=== PATIENT | female | born 1995 | race Caucasian/White ===

== ENCOUNTER 2020-07-22 08:40 | Outpatient (REF) | payer OTHER, SELFPAY ==
[2020-07-22 10:03] LABS: MANUAL DIFF FLAG NO
[2020-07-22 10:08] LABS: Basophils Absolute Auto 0.1 X10*3/uL (0.0-0.2); Basophils Percent Auto 1.9 % (0-2); Eosinophils Absolute Auto 0.1 X10*3/uL (0.0-0.4); Eosinophils Percent Auto 1.9 % (0-4); Hematocrit 41.7 % (37-47); Hemoglobin 13.1 g/dl (12.0-16.0); Lymphocytes Absolute Auto 1.1 X10*3/uL (1.2-4.9); Lymphocytes Percent Auto 34.4 % (20-40); Mean Corpuscular HGB Conc 31.4 g/dl (31.0-35.0); Mean Corpuscular Hemoglobin 30.1 pg (27.0-33.0); Mean Corpuscular Volume 95.9 fL (80-98); Mean Platelet Volume 9.3 fL (9.4-12.3); Monocytes Absolute Auto 0.2 X10*3/uL (0.1-1.2); Monocytes Percent Auto 4.8 % (2-11); Neutrophils Absolute Auto 1.8 X10*3/uL (2.0-8.3); Platelet Count 318 X10*3/uL (160-400); Red Blood Count 4.35 X10*6/uL (4.20-5.50); Red Cell Distribution Width 14.2 % (11.0-16.0); White Blood Count 3.1 X10*3/uL (4.8-10.8)
[2020-07-22 10:41] LABS: Alanine Aminotransferase 15 U/L (0-31); Alkaline Phosphatase 63 U/L (39-117); Anion Gap 11 (12-20); Aspartate Amino Transferase 16 U/L (5-31); Bilirubin Total 0.5 mg/dL (0.0-1.0); Blood Urea Nitrogen 14 mg/dL (9-16); Calcium 8.6 mg/dL (8.4-10.2); Carbon Dioxide 24 mmol/L (22-29); Chloride 109 mmol/L (96-108); Cholesterol 184 mg/dL; Estimated Glomerular Filt Rate > 60; Glucose Fasting 91 mg/dL (60-99); HDL Cholesterol 40 mg/dL; LDL Cholesterol Calculated 123 mg/dl; Potassium 4.5 mmol/L (3.3-5.1); Sodium 139 mmol/L (135-145); Total Protein 6.9 g/dL (6.5-8.0); Triglycerides 106 mg/dL
[2020-07-22 11:08] LABS: TSH reflex Free T4 0.57 uIU/mL (0.32-4.0)
[2020-07-28 13:57] LABS: Vitamin D 25-OH, D2 <4 ng/mL; Vitamin D 25-OH, D3 14 ng/mL; Vitamin D 25-OH, Total 14 ng/mL (30-100)
== END 2020-07-22 08:41 | disposition home or self-care (01) ==
LOC: HO.10HDL 08:40
PROVIDERS: Visit Provider Internal Medicine
DX: D72.819 Decreased white blood cell count, unspecified (principal); E78.5 Hyperlipidemia, unspecified; E06.3 Autoimmune thyroiditis; E55.9 Vitamin D deficiency, unspecified; Z82.49 Family history of ischemic heart disease and other diseases of the circulatory system
CPT/HCPCS: 36415; 80053; 80061; 82306; 84443; 85025

== ENCOUNTER 2020-11-24 22:34 | Emergency (ER) | payer OTHER, SELFPAY ==
[2020-11-24 22:41] VITALS: BP 104/68; PULSE 86; RESP 18; TEMP 36.9; O2SAT 99; BMI 32.1
[2020-11-24 23:28] LABS: Glucose Urine UA NEG (NEG); Leukocyte Esterase Urine NEG (NEG); Nitrite Urine NEG (NEG); PH 6.5 (5.0-8.0); Specific Gravity - Urine 1.025 (1.005-1.025); Urine Blood NEG (NEG); Urine Ketones NEG (NEG); Urine Protein TRACE MG/DL (NEG-TRACE)
[2020-11-24 23:29] LABS: Appearance Urine HAZY; Color Urine YELLOW; UACC Culture Trigger NO
[2020-11-24 23:30] LABS: UPreg QC Valid YES; Urine Pregnancy NEGATIVE (NEGATIVE)
--- NOTE | 2020-11-25 00:05 | PC.NURSE ---
PT AMBULATES TO ROOM #13 WITH C/O NAUSEA/VOMITING. PT CHG INTO GOWN AND MD AT BEDSIDE FOR EVAL. PT IS NOT NAUSEA AT THIS TIME.
--- NOTE | 2020-11-25 00:09 | ED_ITS ---
HPI - General Adult General Chief complaint: Nausea/Vomiting/Diarrhea Stated complaint: VOMITTING Time Seen by Provider: 11/24/20 23:52 Source: family ( Mother, Esme) Mode of arrival: ambulatory Limitations: other ( Down's syndrome) History of Present Illness HPI narrative: 25-year-old female who is brought to emergency department by her mother for evaluation of abdominal pain and vomiting. The information comes from the patient's mother, Emse, since the patient has Down's syndrome and is an unreliable informant. the mother states the patient complained of abdominal pain and nausea. The patient then took a shower and seemed to be better. The patient then developed vomiting and had approximately 4 episodes of emesis. The mother states that the patient vomited up pizza that she had eaten earlier in the evening. The patient did feel warm to the touch but the mother did not take her temperature. The patient had no other complaints or symptoms according to the mother. the mother states that is unusual for this patient to vomit. The patient was given ondansetron 4 mg translingually with improvement of her symptoms. At the time of my evaluation, the patient resting comfortably on the stretcher and does not appear to be in any distress. Related Data Home Medications Medication Instructions Recorded Confirmed quetiapine 25 mg tablet 0 mg PO 07/22/20 11/19/20 Previous Rx's Medication Instructions Recorded cholecalciferol (vitamin D3) 50 50 mcg PO DAILY 90 Days #90 cap 07/28/20 mcg (2,000 unit) capsule levothyroxine 88 mcg tablet 88 mcg PO DAILY 90 Days #90 tab 07/28/20 ondansetron 4 mg PO Q6-8H PRN #14 tab 11/25/20 Allergies Allergy/AdvReac Type Severity Reaction Status Date / Time penicillin V Allergy Intermediate hives Verified 11/24/20 22:41 Review of Systems Review of Systems: Yes all other systems are reviewed and are negative [facility] Past Medical History [facility] Narrative: Social history: Patient lives at home with her mother. The patient does attend a day program 5 times a week and the mother states she worse at this day program as well. The patient does not drink alcohol, smoke cigarettes or uses drugs. Medical History Autoimmune thyroiditis Down syndrome Family history of hypertension Hypovitaminosis D Leukopenia Obese Surgical History History of eye surgery Family History Family History (Updated 11/19/20 @ 17:20 by STACEY Muller) Father Hypertension Mother Medical history non-contributory Maternal Grandmother Seizures Maternal Grandfather Diabetes type 2, uncontrolled Paternal Grandfather No problems noted. Social History Social History Housing: Apartment Alcohol intake: never Patient Tobacco Use Status: Never used Tobacco e-Cigarette/Vaping Use: Never Used Second Hand Smoke Exposure: No Advance Directives: No Advance Directives Information Provided: No service: No Current occupational status: unemployed Physical Exam Vital Signs: Vital Signs: Last Vital Signs Temp 98.5 F 11/24/20 22:41 Pulse 86 11/24/20 22:41 Resp 18 11/24/20 22:41 BP 104/68 11/24/20 22:41 Pulse Ox 99 11/24/20 22:41 Body Mass Index 32.1 Const: Other: Awake, alert, female with Down's features who is very pleasant and cooperative, she does not appear to be in distress. HENMT: Head: Yes normal to inspection and Yes atraumatic Ears: external ears normal General nose exam: Normal external nose present Face and sinus: Yes other ( Down's features) Mouth: Normal oral and palatal mucosa present and tongue abnormal ( macroglossia) Throat: Yes posterior oropharynx normal Eyes: Periorbital: periorbital findings normal Eyelids: Yes eyelids normal Conjunctivae: conjunctivae normal Sclerae: sclerae normal Corneas: corneas normal Direct Ophthalmoscopy: normal light reflex Neck: Neck: Yes full ROM, Yes no lymphadenopathy, Yes trachea midline and Yes supple Chest: Chest palpation & inspection: normal inspection of the chest and normal palpation of entire chest wall Resp: Effort & Inspection: normal respiratory effort and able to speak in complete sentences Auscultation: clear to auscultation bilaterally Cardio: Rate: regular rate Rhythm: regular rhythm Heart sounds: S1 normal heart sound present, S2 normal heart sound present and no murmurs GI: Inspection: Yes normal to inspection Palpation (GI): Soft to palpation, nontender, no guarding, not rigid and No hepatosplenomegaly present : General: Yes no CVA tenderness Back/Spine/Pelvis: Back: no CVA tenderness Cervical Spine: normal cervical lordosis Thoracic/Lumbar Spine: thoracic and lumbar spine normal to inspection Skin: Lesions: no lesions Rashes: no rashes Wounds: no wounds Neuro: Other: patient is awake and alert, she was able to tell me her name, cranial nerves appear to be intact, she moves all extremities symmetrically Extrem: General: Yes normal to inspection and Yes full ROM Psych: Appearance: well kempt Attitude: cooperative Course Course Course Narrative: 25-year-old female with Down syndrome who presents emergency department for evaluation of abdominal pain and vomiting. Patient's vital signs were normal. Patient's abdominal exam revealed no tenderness, she does not appear to be in distress. The patient did vomit prior to coming to the emergency department and was treated with Zofran 4 mg translingual with improvement of her symptoms. The patient will be given a p.o. challenge with apple juice to see if she can be discharged home. At this time I suspect the patient may have an acute viral syndrome and I do not think that she has an acute abdomen. 0117: The patient was able to drink apple juice without vomiting. The patient will be discharged home with a prescription for Zofran ODT 4 mg every 6- 8 hours as needed for nausea and vomiting. The Patient's mother was given verbal and printed instructions prior to discharge. The patient's mother was advised to have the patientfollow-up with her PCP in 2 days and to return to the emergency department if her symptoms get worse or if she develop any new symptoms that are concerning to them Medical Decision Making Lab Data Labs: Lab Results 11/24/20 11/24/20 Range/Units 22:59 22:59 Urine Color YELLOW Urine Appearance HAZY Urine pH 6.5 (5.0-8.0) Ur Specific [place]ayson 1.025 (1.005-1.025) Urine Protein TRACE (NEG-TRACE) MG/DL Urine Glucose (UA) NEG (NEG) MG/DL Urine Ketones NEG (NEG) MG/DL Urine Blood NEG (NEG) Urine Nitrite NEG (NEG) Ur Leukocyte Esterase NEG (NEG) Urine Test NEGATIVE (NEGATIVE) Discharge Plan Discharge Clinical Impression: Abdominal pain Qualifiers: Abdominal location: lower abdomen, unspecified Qualified Code(s): R10.30 - Lower abdominal pain, unspecified Vomiting Qualifiers: Vomiting type: unspecified Vomiting Intractability: non-intractable Nausea presence: with nausea Qualified Code(s): R11.2 - Nausea with vomiting, unspecified Patient Disposition: Home, Self-Care Instructions: Acute Nausea and Vomiting (ED) Additional Instructions: Take Zofran (ondansetron) 4 mg oral dissolvable tablets 1 tablet dissolved under the time every 6-8 hours as needed for nausea and vomiting. Stay on a opal diet (bananas, rice, applesauce, tea and toast) for the next 24 hours. Take ibuprofen 200 mg pills, 3 pills every 6 hours as needed for pain or fever. Take Tylenol (acetaminophen) 500 mg pills, 2 pills every 4 to 6 hours as needed for pain or fever. Follow-up with your doctor in 2 days. Please return to the emergency department if your symptoms get worse or if you develop any symptoms that are concerning to you. Prescriptions: New ondansetron 4 mg tablet,disintegrating 4 mg PO Q6-8H PRN (Reason: nausea and vomiting) Qty: 14 RF: 0 No Action cholecalciferol (vitamin D3) 50 mcg (2,000 unit) capsule 50 mcg PO DAILY 90 Days Qty: 90 RF: 3 levothyroxine 88 mcg tablet 88 mcg PO DAILY 90 Days Qty: 90 RF: 1 quetiapine 25 mg tablet 0 mg PO RF: 0
--- NOTE | 2020-11-25 01:18 | PC.NURSE ---
PT AWAITING FOR DISPO INSTRUCTIONS. PT IN NAD. PT ABLE TO KEEP APPLE JUICE DOWN AND IS READY TO GO HOME. WILL CONTINUE TO MONITOR PT.
[2020-11-25 01:26] VITALS: BP 117/85; PULSE 85; RESP 15; O2SAT 100
== END 2020-11-25 01:43 | disposition home or self-care (01) ==
PROVIDERS: Emergency Provider Emergency Medicine Emergency Medical Services; PCP Internal Medicine
DX: R11.2 Nausea with vomiting, unspecified (principal); R10.30 Lower abdominal pain, unspecified; Q90.9 Down syndrome, unspecified
CPT/HCPCS: 81003; 81025; 99283

== ENCOUNTER 2020-12-08 13:25 | Outpatient (REF) | payer OTHER, SELFPAY ==
[2020-12-08 15:30] LABS: Free T4 (Free Thyroxine) 1.21 ng/dL (0.71-1.85); Thyroid Stimulating Hormone 0.57 uIU/mL (0.32-4.0)
[2020-12-11 15:52] LABS: Thyroid Stimulating Immunoglob <89 % baseline (<140)
[2020-12-11 21:47] LABS: Thyrotropin Receptor Antibody <1.00 IU/L (<=2.00)
== END 2020-12-08 13:26 | disposition home or self-care (01) ==
LOC: HO.LAB 13:25
PROVIDERS: PCP Internal Medicine; Visit Provider Nurse Practitioner Gerontology
DX: E06.3 Autoimmune thyroiditis (principal)
CPT/HCPCS: 36415; 83520; 84439; 84443; 84445; 99212

== ENCOUNTER 2023-01-19 11:59 | Outpatient (AMB) | payer OTHER, SELFPAY ==
--- NOTE | 2023-01-19 12:03 | MHC.PC.OV ---
Vital Signs 01/19/23 12:04 Height 4 ft 6.33 in Weight 139 lb 4 oz BMI 33.2 BP 92/62 Blood Pressure Location Lt brachial Position Sitting Pulse 75 Pulse Source Pulse Oximeter Pulse Oximetry (%) 99 Oxygen Delivery Method Room Air Intake Visit Reasons: Annual Intake Note: Patient is here today for a physical. Security Risk Analyst Required: No Accompanied by: MOM Allergies penicillin V Allergy (Intermediate, Verified 01/19/23 12:07) hives Tobacco use date assessed: 01/19/23 Dental Screening Dental Screen Date: 01/19/23 Did you have a dental visit in the last 12 months?: Yes Did you have a dental problem in the last 6 months where you did not have access to dental care?: No Was dental information given to patient?: Patient has dentist HPI HPI Comments History of Present Illness Details 27-year-old female past medical history significant for autoimmune thyroiditis, Autumn's disease, vitamin-D deficiency and Down syndrome. Patient Dr. Rodrigues, presents today with her mother for physical exam. Mom reports report heavy menstrual periods lasting 7 days and sometimes longer than 7 days. Patient sometimes gets her period twice in 1 month. Patient has never had a pap-smear as mom does not think with her dx of down syndrome she would be able tolerate it. T-Spot and Hep B previously ordered by pcp, annual labs added. Eye: Last year, patient follows with Dr. Hobbs every 2 years. [facility] Medical History Autoimmune thyroiditis Down syndrome Eczema Family history of hypertension Hypovitaminosis D Leukopenia Obese Physical exam Seborrheic dermatitis of scalp Surgical History History of eye surgery Family History Father Hypertension Mother Medical history non-contributory Maternal Grandmother Seizures Maternal Grandfather Diabetes type 2, uncontrolled Paternal Grandfather No problems noted. Social History Housing: Apartment Alcohol intake: never Patient Tobacco Use Status: Never used Tobacco e-Cigarette/Vaping Use: Never Used Second Hand Smoke Exposure: No service: No Current occupational status: unemployed Cognitive needs: No Hearing needs: No Vision needs: Yes Questionnaire PHQ-9 Over the last 2 weeks, how often have you been bothered by any of the following problems? 1. Little interest or pleasure in doing things: not at all 2. Feeling down, depressed, or hopeless: not at all 3. Trouble falling or staying asleep, or sleeping too much: not at all 4. Feeling tired or having little energy: not at all 5. Poor appetite or overeating: not at all 6. Feeling bad about yourself - or that you are a failure or have let yourself or your family down: not at all 7. Trouble concentrating on things, such as reading the newspaper or watching television: not at all 8. Moving or speaking so slowly that other people could have noticed. Or the opposite - being so fidgety or restless that you have been moving around a lot more than usual: not at all 9. Thoughts that you would be better off or of hurting yourself in some way: not at all Total score: 0 Depression Screening Interpretation: Negative 87221 - PHQ-9 Billing: Yes Source: Developed by Drs. Jeremie Barth, Alexandria Rosenbaum, Jose Alfredo Sifuentes and colleagues, with an educational melba from [employer]. Thrive Questionnaire Date Thrive assessed: 01/19/23 I am a: Patient What is your living situation today?: I have a steady place to live Within the past 12 months, did the food you bought not last and you didn't have the money to get more?: Never true Within the past 12 months, did you worry whether your food would run out before you got money to buy more?: Never true Do you have trouble paying for medicines?: No Do you have trouble getting transportation to medical appointments?: No Do you have trouble paying your heating and electricity bill?: No Do you have trouble taking care of your child, family member or friend?: No Do you have trouble with day-to-day activities such as bathing, preparing meals, shopping, managing finances, etc.?: No Are you currently unemployed and looking for a job?: No Are you interested in more education?: No Please select the resources that you would like help with: None Currently or been in a relationship where the following occur: no concerns reported AUDIT C Alcohol Use Questionnaire (AUDIT-C) 1. How often do you have a drink containing alcohol?: Never 3. How often do you have six or more drinks on one occasion?: Never Total Score: 0 WINDY-7 AMB Questionnaire WINDY-7 Date WINDY - 7 assessed: 01/19/23 Feeling nervous, anxious, or on edge: 0 = Not at all Not being able to stop or control worryin = Not at all Worrying too much about different things: 0 = Not at all Trouble relaxin = Not at all Being so restless that it is hard to sit still: 0 = Not at all Becoming easily annoyed or irritable: 0 = Not at all Feeling afraid as if something awful might happen: 0 = Not at all Total WINDY-7 score (0-4 normal; 5-9 mild; 10-14 moderate; 15-21 severe): 0 Source: Developed by Drs. Jeremie Barth, Alexandria Rosenbaum, Jose Alfredo Sifuentes and colleagues, with an educational melba from [employer]. WINDY-7 Assessment Billing WINDY-7 Assessment Tool: WINDY-7 Assessment [id number] Review of Systems Const Denies chills, Denies fatigue, Denies fever(s) and Denies poor appetite Eyes Denies no additional complaints ENT Reports Normal hearing present Card Denies chest pain, Denies syncope, Denies rapid heart rate and Denies dyspnea Resp Denies cough and Denies dyspnea GI Denies change in stool character, Denies constipation, Denies diarrhea, Denies nausea and Denies vomiting Denies urinary frequency, Denies dysuria and Denies urinary urgency Neuro Reports Normal hearing present, Denies confusion and Denies syncope Psych Denies confusion Endo Denies fatigue Physical exam (Primary Care) Vital Signs: Last Vital Signs Pulse 75 01/19/23 12:04 BP 92/62 01/19/23 12:04 Pulse Ox 99 01/19/23 12:04 Oxygen Delivery Method Room Air 01/19/23 12:04 BMI result Body Mass Index 33.2 Tobacco/Smoking Status: Tobacco use Status Tobacco use date assessed 01/19/23 01/19/23 12:12 Patient Tobacco Use Status Never used Tobacco 01/19/23 12:04 e-Cigarette/Vaping Use Never Used 01/19/23 12:04 PHQ-9: PHQ-9 Score PHQ-9: Total score 0 01/19/23 12:12 Depression Screening Interpretation: Negative Thrive Assessment: Date of Thrive Assessment Date Thrive assessed 01/19/23 01/19/23 12:12 Currently or been in a relationship where the following occur: no concerns reported Const General: No confusion Orientation/consciousness: No confusion HENMT Head: Yes normocephalic and Yes atraumatic Ears: external ears normal and TM's normal bilaterally General nose exam: Normal external nose present and Normal nasal mucous membranes and turbinates present Face and sinus: Yes normal facial exam and Yes sinuses nontender Mouth: moist mucous membranes Throat: Yes tonsils normal Eyes Conjunctivae: conjunctivae normal Sclerae: sclerae normal Pupils: Equal, round and reactive pupils present and Pupils normal by confrontation EOM: EOMs intact bilaterally Direct Ophthalmoscopy: normal light reflex Neck Neck: Yes no lymphadenopathy and Yes supple Thyroid: Thyroid normal Chest Chest palpation & inspection: normal inspection of the chest Resp Effort & Inspection: normal respiratory effort Auscultation: clear to auscultation bilaterally, no crackles, no rhonchi and no wheezes Cardio Rate: regular rate Rhythm: regular rhythm Peripheral pulses: radial pulses present and dorsalis pedis present GI Inspection: Yes normal to inspection Palpation (GI): Soft to palpation, nontender and No hepatosplenomegaly present Auscultation: normoactive bowel sounds Skin General skin exam: no rashes or lesions noted Neuro General: No confusion Cranial nerves: Yes Equal, round and reactive pupils present and Yes Normal hearing present Cognition (Neuro): normal cognition Gait exam (Neuro): Normal gait present Motor exam (neuro): 5/5 motor strength present throughout Deep tendon reflexes (DTR's): Right brachioradialis reflex intensity grade: 2+, Left brachioradialis reflex intensity grade: 2+, Right patellar reflex intensity grade: 2+ and Left patellar reflex intensity grade: 2+ Extrem General: No edema Assessment and Plan Assessment & Plan (1) Physical exam: Code(s): Z00.00 - Encounter for general adult medical examination without abnormal findings Plan: Follow-up in 1 year. (2) Down syndrome: Code(s): Q90.9 - Down syndrome, unspecified (3) Autumn's disease: Code(s): E06.3 - Autoimmune thyroiditis Plan: Continue on levothyroxine 88 mcg daily. TSH level ordered Plan Follow up in 1 year. Orders: Orders Comprehensive Met. Panel Today E66.9 - Obesity, unspecified Lipid Panel Today E66.9 - Obesity, unspecified TSH reflex Free T4 Today E06.3 - Autoimmune thyroiditis Vitamin D 25-OH Total Today Z13.21 - Encounter for screening for nutritional disorder Complete Blood Count Auto Diff Today Z13.0 - Encounter for screening for diseases of the blood and blood-forming organs and certain disorders involving the immune mechanism Coding Level of Care Code Est Pt Prev Care 18-39y(23388) Diagnoses Physical exam Z00.00 Down syndrome Q90.9 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 Additional Codes WINDY-7 Assessment Billing - WNIDY-7 Assessment Tool: WINDY-7 Assessment [id number] ([id number])
[2023-01-19 12:04] VITALS: BP 92/62; PULSE 75; O2SAT 99; BMI 33.2
== END 2023-01-19 13:31 | disposition home or self-care (01) ==
PROVIDERS: PCP Internal Medicine; Visit Provider Nurse Practitioner Family
DX: Z00.00 Encounter for general adult medical examination without abnormal findings (principal); Q90.9 Down syndrome, unspecified; E06.3 Autoimmune thyroiditis
CPT/HCPCS: 99395

== ENCOUNTER 2023-04-20 07:37 | Outpatient (AMB) | payer OTHER, SELFPAY ==
--- NOTE | 2023-04-20 07:39 | A.OFFVIS_ITS ---
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 History taken from the patient's mother. Patient has a long-term history of irregular menstrual cycles associated with pelvic cramping end-stage of 12. No previous pelvic exam or Pap smear done. No hair growth , nipple discharge or any other concerns PFSH Medical History Seborrheic dermatitis of scalp Eczema Physical exam Hypovitaminosis D Leukopenia Down syndrome Obese Autoimmune thyroiditis Family history of hypertension Surgical History History of eye surgery Family History Father Hypertension Mother Medical history non-contributory Maternal Grandmother Seizures Maternal Grandfather Diabetes type 2, uncontrolled Paternal Grandfather No problems noted. Social History (Updated 04/20/23 @ 07:49 by Brandi Avalos CMA) Household Members: Family Housing: Apartment Alcohol intake: never Patient Tobacco Use Status: Never used Tobacco e-Cigarette/Vaping Use: Never Used Second Hand Smoke Exposure: No service: No Current occupational status: unemployed Cognitive needs: No Hearing needs: No Vision needs: Yes Female Reproductive History Menstrual Date of last menstrual period: 04/19/23 Review of Systems Const All systems reviewed & are unremarkable except as noted in HPI and below Reports as per HPI and Reports no additional complaints GI Reports no additional complaints Reports no additional complaints Physical Exam Vital Signs: Last Vital Signs BP 92/60 04/20/23 07:41 BMI result Body Mass Index 31.8 Other: Pelvic exam deferred for next visit since the patient is on her period and never had previous pelvic exam Assessment & Plan Assessment & Plan (1) Abnormal uterine bleeding: Code(s): N93.9 - Abnormal uterine and vaginal bleeding, unspecified Plan: Since the patient is not her menstrual cycle will defer physical exam/ pelvic exam/Pap smear. CBC, TSH, prolactin, HCG, FSH/LH and pelvic ultrasound ordered. Discussed with the patient 's mother the different causes of abnormal bleeding including thyroid disorders, uterine and ovarian pathology and other potential causes. Discussed with the patient the work up including CBC (to r/o anemia), TSH, prolactin, FSH/LH, pelvic Ultrasound, endometrial biopsy to r/o endometrial pathology. All questions answered and the patient verbalized understanding. Instructed the patient to schedule an appointment for physical exam/pelvic exam/Pap smear in 2 weeks. Orders: Orders TSH reflex Free T4 Today N93.9 - Abnormal uterine and vaginal bleeding, unspecified Follicle Stimulating Hormone Today N93.9 - Abnormal uterine and vaginal bleeding, unspecified Prolactin Today N93.9 - Abnormal uterine and vaginal bleeding, unspecified HCG Quantitative Today N93.9 - Abnormal uterine and vaginal bleeding, unspecified Lutenizing Hormone Today N93.9 - Abnormal uterine and vaginal bleeding, unspecified Complete Blood Count no Diff Today N93.9 - Abnormal uterine and vaginal bleeding, unspecified US pelvic and transvaginal Today N93.9 - Abnormal uterine and vaginal bleeding, unspecified Coding Level of Care Code New Pt Level 3 (14618) Diagnoses Abnormal uterine bleeding N93.9
[2023-04-20 07:41] VITALS: BP 92/60; BMI 31.8
== END 2023-04-20 08:21 | disposition home or self-care (01) ==
PROVIDERS: PCP Internal Medicine; Visit Provider Obstetrics & Gynecology
DX: N93.9 Abnormal uterine and vaginal bleeding, unspecified (principal)
CPT/HCPCS: 99203

== ENCOUNTER 2023-04-20 07:37 | Outpatient (REF) | payer OTHER, SELFPAY ==
[2023-04-20 09:10] LABS: Hematocrit 41.1 % (37.0-47.0); Hemoglobin 13.4 g/dl (12.0-16.0); Mean Corpuscular HGB Conc 32.6 g/dl (31.0-35.0); Mean Corpuscular Hemoglobin 30.9 pg (27.0-33.0); Mean Corpuscular Volume 94.9 fL (80.0-98.0); Mean Platelet Volume 8.9 fL (9.4-12.3); Platelet Count 311 X10*3/uL (160-400); Red Blood Count 4.33 X10*6/uL (4.20-5.50); Red Cell Distribution Width 13.8 % (11.0-16.0); White Blood Count 4.3 X10*3/uL (4.8-10.8)
[2023-04-20 09:50] LABS: HCG Quantitative < 2 mIU/mL; TSH reflex Free T4 1.24 uIU/mL (0.32-4.0)
[2023-04-21 10:29] LABS: Follicle Stimulating Hormone 3.8 mIU/mL; Lutenizing Hormone 3.2 mIU/mL; Prolactin 14.9 ng/mL
== END 2023-04-20 07:38 | disposition home or self-care (01) ==
LOC: HO.LAB 07:37
PROVIDERS: PCP Internal Medicine; Visit Provider Obstetrics & Gynecology
DX: N93.9 Abnormal uterine and vaginal bleeding, unspecified (principal)
CPT/HCPCS: 36415; 83001; 83002; 84146; 84443; 84702; 85027; 99202

== ENCOUNTER 2024-02-08 14:25 | Outpatient (AMB) | payer OTHER, SELFPAY ==
--- NOTE | 2024-02-08 14:26 | MHC.PC.OV ---
Vital Signs 02/08/24 14:27 Height 4 ft 6 in Weight 137 lb BMI 33.0 BP 110/62 Blood Pressure Location Lt brachial Position Sitting Pulse 93 Pulse Source Pulse Oximeter Pulse Oximetry (%) 99 Oxygen Delivery Method Room Air Intake Visit Reasons: ANNUAL EXAM-NEEDS PHQ-9 Breakfast Server Required: No Accompanied by: Mother Allergies penicillin V Allergy (Intermediate, Verified 02/08/24 14:45) hives Medication List - Last Reconciled 02/08/24 by Agata Lubin PA-C cholecalciferol (vitamin D3) 50 mcg PO DAILY 90 days levothyroxine 88 mcg PO DAILY 90 days quetiapine 25 mg PO Tobacco use date assessed: 02/08/24 Dental Screening Dental Screen Date: 02/08/24 Did you have a dental visit in the last 12 months?: Yes Did you have a dental problem in the last 6 months where you did not have access to dental care?: No Was dental information given to patient?: Patient has dentist HPI ANNUAL EXAM-NEEDS PHQ-9 HPI Details 28-year-old female past medical history significant for autoimmune thyroiditis, Autumn's disease, vitamin-D deficiency and Down syndrome coming in for annual exam. Patient presents today with her mom who is her legal guardian. She regularly sees [facility] and [facility] for Seroquel prescription. She has not been seen by endocrinology since 2020 and was following with them for Autumn's. She has no acute concerns today. [facility] Medical History Seborrheic dermatitis of scalp Eczema Physical exam Hypovitaminosis D Leukopenia Down syndrome Obese Autoimmune thyroiditis Family history of hypertension Surgical History History of eye surgery Family History Father Hypertension Mother Medical history non-contributory Maternal Grandmother Seizures Maternal Grandfather Diabetes type 2, uncontrolled Paternal Grandfather No problems noted. Social History (Updated 04/20/23 @ 07:49 by Brandi Avalos CMA) Household Members: Family Housing: Apartment Alcohol intake: never Patient Tobacco Use Status: Never used Tobacco Tobacco use type: Cigarette e-Cigarette/Vaping Use: Never Used Second Hand Smoke Exposure: No service: No Current occupational status: unemployed Cognitive needs: No Hearing needs: No Vision needs: Yes Questionnaire PHQ-9 Over the last 2 weeks, how often have you been bothered by any of the following problems? 1. Little interest or pleasure in doing things: not at all 2. Feeling down, depressed, or hopeless: not at all 3. Trouble falling or staying asleep, or sleeping too much: not at all 4. Feeling tired or having little energy: not at all 5. Poor appetite or overeating: not at all 6. Feeling bad about yourself - or that you are a failure or have let yourself or your family down: not at all 7. Trouble concentrating on things, such as reading the newspaper or watching television: not at all 8. Moving or speaking so slowly that other people could have noticed. Or the opposite - being so fidgety or restless that you have been moving around a lot more than usual: not at all 9. Thoughts that you would be better off or of hurting yourself in some way: not at all Total score: 0 Source: Developed by Drs. Jeremie Barth, Alexandria Rosenbaum, Jose Alfredo Sifuentes and colleagues, with an educational melba from [employer] Thrive Questionnaire Date Thrive assessed: 02/06/24 I am a: Parent/Caregiver What is your living situation today?: I have a steady place to live Within the past 12 months, did the food you bought not last and you didn't have the money to get more?: Never true Within the past 12 months, did you worry whether your food would run out before you got money to buy more?: Never true Do you have trouble paying for medicines?: No Do you have trouble getting transportation to medical appointments?: No Do you have trouble paying your heating and electricity bill?: No Do you have trouble taking care of your child, family member or friend?: No Do you have trouble with day-to-day activities such as bathing, preparing meals, shopping, managing finances, etc.?: Yes Are you currently unemployed and looking for a job?: No Are you interested in more education?: I choose not to answer this question Please select the resources that you would like help with: None Currently or been in a relationship where the following occur: No concerns reported THRIVE Score: 0 AUDIT C Alcohol Use Questionnaire (AUDIT-C) 1. How often do you have a drink containing alcohol?: Never 3. How often do you have six or more drinks on one occasion?: Never Total Score: 0 WINDY-7 AMB Questionnaire WINDY-7 Date WINDY - 7 assessed: 02/08/24 Feeling nervous, anxious, or on edge: 0 = Not at all Not being able to stop or control worryin = Not at all Worrying too much about different things: 0 = Not at all Trouble relaxin = Not at all Being so restless that it is hard to sit still: 0 = Not at all Becoming easily annoyed or irritable: 0 = Not at all Feeling afraid as if something awful might happen: 0 = Not at all Total WINDY-7 score (0-4 normal; 5-9 mild; 10-14 moderate; 15-21 severe): 0 Source: Developed by Drs. Jeremie Barth, Alexandria Rosenbaum, Jose Alfredo Sifuentes and colleagues, with an educational melba from [employer] Review of Systems Const Denies body aches, Denies fatigue, Denies fever(s), Denies frequent falls, Denies headache(s) and Denies weakness Eyes Reports no additional complaints and Denies change in vision ENT Denies dysphagia, Denies dizziness, Denies facial pain, Denies headache(s), Denies nasal congestion and Denies odynophagia Card Denies chest pain, Denies syncope, Denies irregular heart rhythm, Denies leg edema, Denies lightheadedness and Denies dyspnea Resp Denies cough and Denies dyspnea GI Denies constipation, Denies dysphagia, Denies dyspepsia, Denies diarrhea, Denies nausea, Denies odynophagia and Denies vomiting Denies urinary frequency, Denies dysuria, Denies urinary hesitancy and Denies urinary urgency Musc Denies back pain and Denies myalgias Skin/Breast Reports system reviewed and no additional complaints, except as documented Neuro Denies dizziness, Denies syncope, Denies frequent falls, Denies headache(s) and Denies weakness Psych Reports no additional complaints Endo Denies fatigue Physical exam (Primary Care) Vital Signs: Last Vital Signs Pulse 93 02/08/24 14:27 BP 110/62 02/08/24 14:27 Pulse Ox 99 02/08/24 14:27 Oxygen Delivery Method Room Air 02/08/24 14:27 BMI result Body Mass Index 33.0 Tobacco/Smoking Status: Tobacco use Status Tobacco use date assessed 02/08/24 02/08/24 14:33 Patient Tobacco Use Status Never used Tobacco 02/08/24 14:28 Tobacco use type Cigarette 02/08/24 14:33 e-Cigarette/Vaping Use Never Used 02/08/24 14:28 PHQ-9: PHQ-9 Score PHQ-9: Total score 0 02/08/24 14:28 Thrive Assessment: Date of Thrive Assessment Date Thrive assessed 02/06/24 02/08/24 14:28 Currently or been in a relationship where the following occur: No concerns reported Const General: cooperative, healthy appearing, comfortable and no acute distress Orientation/consciousness: patient oriented x3 HENMT Head: Yes normocephalic Ears: hearing grossly normal bilaterally, external ears normal, TM normal on the right and Abnormal EAC present cerumen impaction bilateral General nose exam: Normal external nose present Face and sinus: Yes normal facial exam and Yes sinuses nontender Mouth: Normal oral and palatal mucosa present and tongue normal Throat: Yes posterior oropharynx normal Eyes General: appearance normal, both eyes and all related structures Conjunctivae: conjunctivae normal Pupils: Equal, round and reactive pupils present EOM: EOMs intact bilaterally and No Nystagmus present Neck Neck: Yes normal visual inspection, Yes full ROM and Yes no lymphadenopathy Chest Chest palpation & inspection: normal inspection of the chest Resp Effort & Inspection: normal respiratory effort Auscultation: clear to auscultation bilaterally, no crackles, no rales, no rhonchi, no wheezes and breath sounds present Cardio Rate: regular rate Rhythm: regular rhythm Peripheral pulses: radial pulses present and dorsalis pedis present GI Inspection: Yes normal to inspection and No Abdominal wall edema Palpation (GI): Soft to palpation, not firm and nontender Auscultation: normal bowel sounds Rectal Exam - Female: deferred General: Yes no CVA tenderness Back/Spine/Pelvis Back: no CVA tenderness Skin General skin exam: no rashes or lesions noted Neuro General: patient oriented x3 Cranial nerves: Yes Equal, round and reactive pupils present, Yes Midline tongue present, Yes Ability to bilaterally elevate shoulders present and No Nystagmus present Gait exam (Neuro): Normal gait present Extrem General: Yes normal to inspection, Yes full ROM, No no pedal edema and No edema Psych Speech and movement: Normal speech and movement present Affect: normal affect Insight: Good insight present (Psych) Judgement: Good judgement present (Psych) Office Procedures Cerumen Removal From which ear canal was the cerumen removed: bilateral Removal: otoscope w/curette Notes: patient tolerated procedure well, no complications and ear canal clear [id number] Wax Removal by Spoon/Curette Assessment and Plan Assessment & Plan (1) Autumn's disease: Code(s): E06.3 - Autoimmune thyroiditis Plan: Continue on levothyroxine updated labs ordered. (2) Eczema: Code(s): L30.9 - Dermatitis, unspecified Plan: Continue to use lotion to hydrate skin. (3) Down syndrome: Code(s): Q90.9 - Down syndrome, unspecified (4) Obese: Code(s): E66.9 - Obesity, unspecified Qualifiers: Obesity type: due to excess calories Obesity classification: adult class 1 (BMI 30 - 34.9) Serious obesity comorbidity presence: without serious comorbidity Body mass index: BMI 33.0-33.9 Qualified Code(s): E66.09 - Other obesity due to excess calories; Z68.33 - Body mass index [BMI] 33.0-33.9, adult Plan: Encouraged healthy diet and regular exercise. (5) Cerumen impaction: Code(s): H61.20 - Impacted cerumen, unspecified ear Plan: Bilateral ears were cleared with lighted curette. Left ear continues to have excessive amounts of cerumen advised patient to use Debrox drops and follow up in 1 week for ear flushing. (6) Physical exam: Code(s): Z00.00 - Encounter for general adult medical examination without abnormal findings Plan: Patient is up-to-date on all recommended routine screenings and vaccinations for age. Advised patient to follow up with gynecology for routine Pap smears. Updated blood work ordered and follow up in 1 year or sooner if new problems arise in. Plan This note was constructed using voice recognition software. While every effort has been made to ensure accuracy and trouble shooter, still areas may have been included sometimes these areas may affect the content or meeting of the given symptoms. Total time spent caring for the patient today was 30 minutes. This includes time spent before the visit reviewing the chart, time spent during the visit, and time spent after the visit and documentation. Orders: Orders Complete Blood Count Auto Diff Today Z00.00 - Encounter for general adult medical examination without abnormal findings Comprehensive Met. Panel Today Z00.00 - Encounter for general adult medical examination without abnormal findings Free T4 (Free Thyroxine) Today Z00.00 - Encounter for general adult medical examination without abnormal findings TSH reflex Free T4 Today Z00.00 - Encounter for general adult medical examination without abnormal findings Vitamin D 25-OH (D2 and D3) Today Z00.00 - Encounter for general adult medical examination without abnormal findings Vitamin B12 and Folate Today Z00.00 - Encounter for general adult medical examination without abnormal findings Medications: New ketoconazole 2% 1 appl topical 2XW 120 mL 2RF Refilled cholecalciferol (vitamin D3) 50 mcg PO DAILY 90 days 90 caps 3RF Coding Level of Care Code Est Pt Prev Care 18-39y(75120) Diagnoses 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 Eczema L30.9 Down syndrome Q90.9 Class 1 obesity due to excess calories without serious comorbidity with body mass index (BMI) of 33.0 to 33.9 in adult E66.09; Z68.33 Obesity type: due to excess calories Obesity classification: adult class 1 (BMI 30 - 34.9) Serious obesity comorbidity presence: without serious comorbidity Body mass index: BMI 33.0-33.9 Cerumen impaction H61.20 Physical exam Z00.00 CPT Codes Office Procedure - CPT: 04901-Iko Wax Removal by Spoon/Curette ([id number])
[2024-02-08 14:27] VITALS: BP 110/62; PULSE 93; O2SAT 99; BMI 33.0
== END 2024-02-08 15:08 | disposition home or self-care (01) ==
PROVIDERS: PCP Internal Medicine
DX: Z00.00 Encounter for general adult medical examination without abnormal findings (principal); E06.3 Autoimmune thyroiditis; Z68.33 Body mass index [BMI] 33.0-33.9, adult; E66.09 Other obesity due to excess calories; H61.23 Impacted cerumen, bilateral; L30.9 Dermatitis, unspecified; Q90.9 Down syndrome, unspecified

== ENCOUNTER → 2024-02-08 14:25 | Outpatient (BNVA) | payer OTHER, SELFPAY | PROVIDERS: PCP Internal Medicine | DX: Z00.01 Encounter for general adult medical examination with abnormal findings (principal); E06.3 Autoimmune thyroiditis; Q90.9 Down syndrome, unspecified; L30.9 Dermatitis, unspecified; E66.09 Other obesity due to excess calories; Z68.33 Body mass index [BMI] 33.0-33.9, adult; H61.23 Impacted cerumen, bilateral | CPT/HCPCS: 69210; 96127; 99395 ==

== ENCOUNTER 2024-02-16 15:43 | Outpatient (AMB) | payer OTHER, SELFPAY ==
[2024-02-16 15:44] VITALS: BP 112/78; PULSE 72; BMI 33.0
--- NOTE | 2024-02-16 15:44 | A.OFFPC_ITS ---
Vital Signs 02/16/24 15:44 Height 4 ft 6 in Weight 137 lb BMI 33.0 BP 112/78 Blood Pressure Location Lt brachial Position Sitting Pulse 72 Pulse Source Pulse Oximeter Oxygen Delivery Method Room Air Intake Visit Reasons: ear flush Educational Psychology Professor Required: No Allergies penicillin V Allergy (Intermediate, Verified 02/16/24 15:44) hives Medication List - Last Reconciled 02/16/24 by Agata Lubin PA-C cholecalciferol (vitamin D3) 50 mcg PO DAILY 90 days ketoconazole 2% 1 appl topical 2XW levothyroxine 88 mcg PO DAILY 90 days quetiapine 25 mg PO Tobacco use date assessed: 02/08/24 Dental Screening Dental Screen Date: 02/08/24 HPI ear flush HPI Details 28-year-old female past medical history significant for autoimmune thyroiditis, Autumn's disease, vitamin-D deficiency and Down syndrome coming in for ear flushing. Declines any symptoms of ear drainage, ear pain, or issues with her hearing. Incidentally found on last exam to have excessive cerumen. [facility] Medical History Seborrheic dermatitis of scalp Eczema Physical exam Hypovitaminosis D Leukopenia Down syndrome Obese Autoimmune thyroiditis Family history of hypertension Surgical History History of eye surgery Family History Father Hypertension Mother Medical history non-contributory Maternal Grandmother Seizures Maternal Grandfather Diabetes type 2, uncontrolled Paternal Grandfather No problems noted. Social History (Updated 04/20/23 @ 07:49 by Brandi Avalos CMA) Household Members: Family Housing: Apartment Alcohol intake: never Patient Tobacco Use Status: Never used Tobacco Tobacco use type: Cigarette e-Cigarette/Vaping Use: Never Used Second Hand Smoke Exposure: No service: No Current occupational status: unemployed Cognitive needs: No Hearing needs: No Vision needs: Yes Questionnaire Thrive Questionnaire Date Thrive assessed: 02/06/24 I am a: Parent/Caregiver What is your living situation today?: I have a steady place to live Within the past 12 months, did the food you bought not last and you didn't have the money to get more?: Never true Within the past 12 months, did you worry whether your food would run out before you got money to buy more?: Never true Do you have trouble paying for medicines?: No Do you have trouble getting transportation to medical appointments?: No Do you have trouble paying your heating and electricity bill?: No Do you have trouble taking care of your child, family member or friend?: No Do you have trouble with day-to-day activities such as bathing, preparing meals, shopping, managing finances, etc.?: Yes Are you currently unemployed and looking for a job?: No Are you interested in more education?: I choose not to answer this question Please select the resources that you would like help with: None Currently or been in a relationship where the following occur: No concerns reported THRIVE Score: 0 AUDIT C Alcohol Use Questionnaire (AUDIT-C) 1. How often do you have a drink containing alcohol?: Never 3. How often do you have six or more drinks on one occasion?: Never Total Score: 0 WINDY-7 AMB Questionnaire WINDY-7 Date WINDY - 7 assessed: 02/08/24 Source: Developed by Drs. Jeremie Barth, Alexandria Rosenbaum, Jose Alfredo Sifuentes and colleagues, with an educational melba from [employer]. Review of Systems Const Denies chills, Denies fever(s) and Denies headache(s) Eyes Reports no additional complaints ENT Denies ear discharge, Denies otalgia and Denies headache(s) Card Reports no additional complaints Resp Reports no additional complaints Musc Reports no additional complaints Skin/Breast Reports system reviewed and no additional complaints, except as documented Neuro Denies headache(s) Physical exam (Primary Care) Vital Signs: Last Vital Signs Pulse 72 02/16/24 15:44 BP 112/78 02/16/24 15:44 Oxygen Delivery Method Room Air 02/16/24 15:44 BMI result Body Mass Index 33.0 Tobacco/Smoking Status: Tobacco use Status Tobacco use date assessed 02/08/24 02/16/24 15:56 Patient Tobacco Use Status Never used Tobacco 02/16/24 15:56 Tobacco use type Cigarette 02/16/24 15:56 e-Cigarette/Vaping Use Never Used 02/16/24 15:56 Thrive Assessment: Date of Thrive Assessment Date Thrive assessed 02/06/24 02/16/24 15:56 Currently or been in a relationship where the following occur: No concerns reported Const General: cooperative, healthy appearing, comfortable and no acute distress Orientation/consciousness: patient oriented x3 HENMT Other: Left ear canal having macerated tissue present behind the wax Head: Yes normocephalic Ears: hearing grossly normal bilaterally and Abnormal EAC present excessive cerumen bilateral General nose exam: Normal external nose present Eyes General: appearance normal, both eyes and all related structures Conjunctivae: conjunctivae normal Neck Neck: Yes full ROM and Yes no lymphadenopathy Resp Effort & Inspection: normal respiratory effort Cardio Rate: regular rate Skin General skin exam: no rashes or lesions noted Neuro General: patient oriented x3 Gait exam (Neuro): Normal gait present Extrem General: Yes normal to inspection, Yes full ROM and No edema Psych Affect: normal affect Attitude: cooperative Insight: Good insight present (Psych) Judgement: Good judgement present (Psych) Office Procedures Cerumen Removal From which ear canal was the cerumen removed: bilateral Removal: irrigation and otoscope w/curette Notes: patient tolerated procedure well, no complications and ear canal clear [id number] Irrigation/Lavage Assessment and Plan Assessment & Plan (1) Cerumen impaction: Code(s): H61.20 - Impacted cerumen, unspecified ear Plan: Cerumen was successfully moved from bilateral ears using irrigation and lighted curette. TM on the right ear was visualized as intact with well aerated middle ear spaces. TM of the left ear was not visualized due to excessive discharge and tissue in the ear canal. (2) Otitis externa: Code(s): H60.90 - Unspecified otitis externa, unspecified ear Plan: Patient was found to have otitis externa in left ear after cerumen was removed. Treat with topical antibiotics/steroid drops for 1 week and follow up as needed. Plan This note was constructed using voice recognition software. While every effort has been made to ensure accuracy and insurance marketing specialist, still areas may have been included sometimes these areas may affect the content or meeting of the given symptoms. Total time spent caring for the patient today was 30 minutes. This includes time spent before the visit reviewing the chart, time spent during the visit, and time spent after the visit and documentation. Medications: New [id number] 3.5-10,000-1 mg/mL-unit/mL-% 4 drps otic (ear) left Q8H 10 mL 0RF Coding Level of Care Code Est Pt Level 4 (66814) Diagnoses Cerumen impaction H61.20 Otitis externa H60.90 CPT Codes Office Procedure - CPT: 40656-Sud Irrigation/Lavage ([id number])
== END 2024-02-16 16:25 | disposition home or self-care (01) ==
PROVIDERS: PCP Internal Medicine
DX: H61.23 Impacted cerumen, bilateral (principal); H60.92 Unspecified otitis externa, left ear

== ENCOUNTER → 2024-02-16 15:43 | Outpatient (BNVA) | payer OTHER, SELFPAY | PROVIDERS: PCP Internal Medicine | DX: H61.23 Impacted cerumen, bilateral (principal) | CPT/HCPCS: 69210; 99212 ==

== ENCOUNTER 2025-02-10 14:49 | Outpatient (AMB) | payer OTHER, SELFPAY ==
[2025-02-10 13:54] VITALS: BP 114/72; PULSE 81; TEMP 36.3; O2SAT 98; BMI 32.9
--- NOTE | 2025-02-10 13:54 | A.OFFPC_ITS ---
Vital Signs 3 02/10/25 13:54 Height 4 ft 6 in Weight 136 lb 6 oz BMI 32.9 BP 114/72 Blood Pressure Location Lt brachial Position Sitting Pulse 81 Pulse Source Pulse Oximeter Temp 97.3 F Temp Source Temporal Artery Scan Pulse Oximetry (%) 98 Oxygen Delivery Method Room Air Intake Visit Reasons: Annual Exam Infant Babysitter Required: No Accompanied by: Mother Allergies penicillin V Allergy (Intermediate, Verified 02/10/25 15:13) hives Medication List - Last Reconciled 02/10/25 by Agata Lubin PA-C cholecalciferol (vitamin D3) 50 mcg PO DAILY 90 days ketoconazole 2% 1 appl topical 2XW levothyroxine 88 mcg PO DAILY 90 days quetiapine 25 mg PO DAILY 30 days Tobacco use date assessed: 02/10/25 Dental Screening Dental Screen Date: 02/10/25 Did you have a dental visit in the last 12 months?: No Did you have a dental problem in the last 6 months where you did not have access to dental care?: No HPI Annual Exam 2 HPI0 Details 29-year-old female with a past medical h istory of Down syndrome, abnormal uterine bleeding, Autumn's disease, obesity last seen 01/2024 coming in for annual exam. Presenting for a routine wellness visit and management of anxiety and menstrual irregularities. Anxiety disorder Managed with Seroquel, effective in controlling symptoms, particularly around menstrual cycle. Menstrual irregularities Reports heavy and painful periods, no Pap smear or pelvic exam history. Rash consistent with eczema, topical treatment recommended. eye exam: Anjel every two years pap smear: plan to r/s with assistant program director [facility] Medical History Seborrheic dermatitis of scalp Eczema Physical exam Hypovitaminosis D Leukopenia Down syndrome Obese Autoimmune thyroiditis Family history of hypertension Surgical History History of eye surgery Family History Father Hypertension Mother Medical history non-contributory Maternal Grandmother Seizures Maternal Grandfather Diabetes type 2, uncontrolled Paternal Grandfather No problems noted. Social History Household Members: Family Housing: Apartment Alcohol intake: never Patient Tobacco Use Status: Never used Tobacco Tobacco use type: Cigarette e-Cigarette/Vaping Use: Never Used Second Hand Smoke Exposure: No service: No Current occupational status: unemployed Cognitive needs: No Hearing needs: No Vision needs: Yes Questionnaire PHQ-9 Over the last 2 weeks, how often have you been bothered by any of the following problems? 1. Little interest or pleasure in doing things: not at all 2. Feeling down, depressed, or hopeless: not at all 3. Trouble falling or staying asleep, or sleeping too much: not at all 4. Feeling tired or having little energy: not at all 5. Poor appetite or overeating: not at all 6. Feeling bad about yourself - or that you are a failure or have let yourself or your family down: not at all 7. Trouble concentrating on things, such as reading the newspaper or watching television: not at all 8. Moving or speaking so slowly that other people could have noticed. Or the opposite - being so fidgety or restless that you have been moving around a lot more than usual: not at all 9. Thoughts that you would be better off or of hurting yourself in some way: not at all Total score: 0 Depression Screening Interpretation: Negative Depression Screening Done: Yes Source: Developed by Drs. Jeremie Barth, Alexandria Rosenbaum, Jose Alfredo Sifuentes and colleagues, with an educational melba from [employer]. Thrive Questionnaire Date Thrive assessed: 02/10/25 I am a: Patient Within the past 12 months, did the food you bought not last and you didn't have the money to get more?: Never true Within the past 12 months, did you worry whether your food would run out before you got money to buy more?: Never true Do you have trouble paying for medicines?: No Do you have trouble getting transportation to medical appointments?: No Do you have trouble paying your heating and electricity bill?: No Do you have trouble taking care of your child, family member or friend?: No Do you have trouble with day-to-day activities such as bathing, preparing meals, shopping, managing finances, etc.?: No Are you currently unemployed and looking for a job?: No Are you interested in more education?: No THRIVE Score: 0 AUDIT C Alcohol Use Questionnaire (AUDIT-C) 1. How often do you have a drink containing alcohol?: Never 3. How often do you have six or more drinks on one occasion?: Never Total Score: 0 WINDY-7 AMB Questionnaire WINDY-7 Date WINDY - 7 assessed: 02/10/25 Feeling nervous, anxious, or on edge: 1 = Several days (anxious only when she's going to have her menstrual ) Not being able to stop or control worryin = Not at all Worrying too much about different things: 0 = Not at all Trouble relaxin = Not at all Being so restless that it is hard to sit still: 0 = Not at all Becoming easily annoyed or irritable: 0 = Not at all Feeling afraid as if something awful might happen: 0 = Not at all Total WINDY-7 score (0-4 normal; 5-9 mild; 10-14 moderate; 15-21 severe): 1 Source: Developed by Drs. Jeremie Barth, Alexandria Rosenbaum, Jose Alfredo Sifuentes and colleagues, with an educational melba from [employer]. Review of Systems Const Denies body aches, Denies chills, Denies fever(s), Denies headache(s) and Denies poor appetite Eyes Reports no additional complaints ENT Denies dysphagia, Denies dizziness, Denies headache(s) and Denies odynophagia Card Denies chest pain, Denies syncope, Denies edema and Denies dyspnea Resp Denies cough and Denies dyspnea GI Denies abdominal pain, Denies constipation, Denies dysphagia, Denies diarrhea, Denies nausea, Denies odynophagia and Denies vomiting Reports as per HPI Musc Reports no additional complaints and Denies abnormal gait Skin/Breast Reports system reviewed and no additional complaints, except as documented Neuro Denies abnormal gait, Denies dizziness, Denies syncope and Denies headache(s) Psych Reports no additional complaints Physical exam (Primary Care) Vital Signs: Last Vital Signs Temp 97.3 F 02/10/25 13:54 Pulse 81 02/10/25 13:54 BP 114/72 02/10/25 13:54 Pulse Ox 98 02/10/25 13:54 Oxygen Delivery Method Room Air 02/10/25 13:54 BMI result Body Mass Index 32.9 Tobacco/Smoking Status: Tobacco use Status Tobacco use date assessed 02/10/25 02/10/25 13:55 Patient Tobacco Use Status Never used Tobacco 02/10/25 13:55 Tobacco use type Cigarette 02/10/25 13:55 e-Cigarette/Vaping Use Never Used 02/10/25 13:55 PHQ-9: PHQ-9 Score PHQ-9: Total score 0 02/10/25 15:05 Depression Screening Interpretation: Negative Thrive Assessment: Date of Thrive Assessment Date Thrive assessed 02/10/25 02/10/25 13:55 Const General: cooperative, healthy appearing, comfortable and no acute distress Orientation/consciousness: patient oriented x3 HENMT Head: Yes normocephalic Ears: hearing grossly normal bilaterally, external ears normal, TM's normal bilaterally and EAC's normal General nose exam: Normal external nose present Face and sinus: Yes normal facial exam and Yes sinuses nontender Mouth: Normal oral and palatal mucosa present and tongue normal Throat: Yes posterior oropharynx normal Eyes General: appearance normal, both eyes and all related structures Conjunctivae: conjunctivae normal Pupils: Equal, round and reactive pupils present EOM: EOMs intact bilaterally and No Nystagmus present Neck Neck: Yes normal visual inspection, Yes full ROM and Yes no lymphadenopathy Chest Chest palpation & inspection: normal inspection of the chest Chest/axillae images: 2 1. Nontender eczematous rash without signs of infection Resp Effort & Inspection: normal respiratory effort Auscultation: clear to auscultation bilaterally, no crackles, no rales, no rhonchi, no wheezes and breath sounds present Cardio Rate: regular rate Rhythm: regular rhythm Peripheral pulses: radial pulses present and dorsalis pedis present GI Inspection: Yes normal to inspection and No Abdominal wall edema Palpation (GI): Soft to palpation, not firm and nontender Auscultation: normal bowel sounds Rectal Exam - Female: deferred General: Yes no CVA tenderness Back/Spine/Pelvis Back: no CVA tenderness Skin General skin exam: no rashes or lesions noted Neuro General: patient oriented x3 Cranial nerves: Yes Equal, round and reactive pupils present, Yes Midline tongue present, Yes Ability to bilaterally elevate shoulders present and No Nystagmus present Gait exam (Neuro): Normal gait present Extrem General: Yes normal to inspection, Yes full ROM, No no pedal edema and No edema Psych Speech and movement: Normal speech and movement present Affect: normal affect Insight: Good insight present (Psych) Judgement: Good judgement present (Psych) Coding Level of Care Code Est Pt Prev Care [id number]) Diagnoses Physical exam Z00.00 Down syndrome Q90.9 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 Class 1 obesity due to excess calories without serious comorbidity with body mass index (BMI) of 33.0 to 33.9 in adult E66.09; Z68.33 Body mass index: BMI 33.0-33.9 Obesity classification: adult class 1 (BMI 30 - 34.9) Obesity type: due to excess calories Serious obesity comorbidity presence: without serious comorbidity Abnormal uterine bleeding N93.9 Seborrheic dermatitis of scalp L21.9 Eczema L30.9 Assessment & Plan Assessment & Plan (1) Physical exam: Code(s): Z00.00 - Encounter for general adult medical examination without abnormal findings Category: Medical Plan: Patient is up-to-date on all recommended routine screenings and vaccinations for her age. She has not had a Pap smear completed yet however she is not sexually active. She agrees to reach out to Dr. Keller the reschedule her appointment. Blood work was ordered at last visit which was not completed. Reminded patient about blood work in updated orders today. Plan to follow up yearly or sooner as needed (2) Down syndrome: Code(s): Q90.9 - Down syndrome, unspecified Category: Medical Plan: Mom is primary historian today. Patient has good support at home and good social support. (3) Autumn's disease: Code(s): E06.3 - Autoimmune thyroiditis Category: Medical Plan: Patient is currently on levothyroxine 88 mcg and agrees to have repeat blood work done today. (4) Obese: Code(s): E66.9 - Obesity, unspecified Category: Medical Qualifiers: Body mass index: BMI 33.0-33.9 Obesity classification: adult class 1 (BMI 30 - 34.9) Obesity type: due to excess calories Serious obesity comorbidity presence: without serious comorbidity Qualified Code(s): E66.09 - Other obesity due to excess calories; Z68.33 - Body mass index [BMI] 33.0-33.9, adult Plan: Healthy diet and regular exercise is encouraged. (5) Abnormal uterine bleeding: Code(s): N93.9 - Abnormal uterine and vaginal bleeding, unspecified Category: Medical Plan: Workup has been initiated by Dr. Keller several years ago I recommended the patient follow up with his office and they agreed to reach out to reschedule appointment (6) Seborrheic dermatitis of scalp: Code(s): L21.9 - Seborrheic dermatitis, unspecified Category: Medical Plan: Continue the use ketoconazole as needed (7) Eczema: Code(s): L30.9 - Dermatitis, unspecified Category: Medical Plan: For eczema plan to use triamcinolone as needed for no longer than 14 days at a time. Plan This note was constructed using voice recognition software. While every effort has been made to ensure accuracy and mechanical engineering manager, still areas may have been included sometimes these areas may affect the content or meeting of the given symptoms. Total time spent caring for the patient today was 30 minutes. This includes time spent before the visit reviewing the chart, time spent during the visit, and time spent after the visit and documentation. Patient was informed and verbally consented to the use of an ambient scribe for clinic note documentation during this visit. Orders: Orders 2 TSH reflex Free T4 Today E06.3 - Autoimmune thyroiditis, Z13.29 - Encounter for screening for other suspected endocrine disorder Free T4 (Free Thyroxine) Today E06.3 - Autoimmune thyroiditis, Z00.00 - Encounter for general adult medical examination without abnormal findings Vitamin B12 and Folate Today Z13.21 - Encounter for screening for nutritional disorder Vitamin D 25-OH Total Today Z13.21 - Encounter for screening for nutritional disorder Complete Blood Count Auto Diff Today N92.0 - Excessive and frequent menstruation with regular cycle, Z00.00 - Encounter for general adult medical examination without abnormal findings Comprehensive Met. Panel Today N92.0 - Excessive and frequent menstruation with regular cycle, Z00.00 - Encounter for general adult medical examination without abnormal findings Medications: New 2 triamcinolone acetonide 0.5% 1 appl topical DAILY 15 grams 0RF
== END 2025-02-10 15:30 | disposition home or self-care (01) ==
LOC: HO.HMCH 14:50
PROVIDERS: PCP Internal Medicine
DX: Z00.00 Encounter for general adult medical examination without abnormal findings (principal); Q90.9 Down syndrome, unspecified; E06.3 Autoimmune thyroiditis; E66.09 Other obesity due to excess calories; Z68.33 Body mass index [BMI] 33.0-33.9, adult; N93.9 Abnormal uterine and vaginal bleeding, unspecified; L21.9 Seborrheic dermatitis, unspecified; L30.9 Dermatitis, unspecified

== ENCOUNTER 2025-02-10 14:49 | Outpatient (REF) | payer OTHER, SELFPAY ==
[2025-02-10 15:59] LABS: MANUAL DIFF FLAG NO
[2025-02-10 16:32] LABS: Hematocrit 42.3 % (37.0-47.0); Hemoglobin 13.9 g/dl (12.0-16.0); Imm Gran Abs Auto 0.02 X10*3/uL (0.00-0.03); Imm Gran Pct Auto 0.6 % (0.0-0.4); Lymphocytes Absolute Auto 1.3 X10*3/uL (1.2-4.9); Mean Corpuscular HGB Conc 32.9 g/dl (31.0-35.0); Mean Corpuscular Hemoglobin 30.7 pg (27.0-33.0); Mean Corpuscular Volume 93.4 fL (80.0-98.0); NRBC Abs Auto 0.000 X10*3/uL (0.0-0.012); NRBC Pct Auto 0.0 /100WBC (0.0-0.2); Platelet Count 365 X10*3/uL (160-400); Red Blood Count 4.53 X10*6/uL (4.20-5.50); White Blood Count 3.5 X10*3/uL (4.8-10.8)
[2025-02-10 17:06] LABS: Alanine Aminotransferase 21 U/L (0-31); Albumin Level 4.2 g/dL (3.5-5.0); Alkaline Phosphatase 88 U/L (39-117); Anion Gap 11 (12-20); Aspartate Amino Transferase 25 U/L (5-31); Blood Urea Nitrogen 13 mg/dL (9-16); Calcium 9.2 mg/dL (8.4-10.2); Carbon Dioxide 28 mmol/L (22-29); Chloride 104 mmol/L (96-108); Estimated Glomerular Filt Rate > 60; Potassium 4.3 mmol/L (3.3-5.1); Sodium 139 mmol/L (135-145); Total Protein 7.6 g/dL (6.5-8.0)
[2025-02-10 17:12] LABS: Free T4 (Free Thyroxine) 1.13 ng/dL (0.71-1.85)
[2025-02-10 17:28] LABS: Folate 11.9 ng/mL (> or = 4.0); Vitamin B12 661 pg/mL (200-900)
== END 2025-02-10 14:50 | disposition home or self-care (01) ==
LOC: HO.LAB 14:49
DX: Z13.29 Encounter for screening for other suspected endocrine disorder (principal); Z00.00 Encounter for general adult medical examination without abnormal findings; Z13.21 Encounter for screening for nutritional disorder; E06.3 Autoimmune thyroiditis; N92.0 Excessive and frequent menstruation with regular cycle; E66.09 Other obesity due to excess calories; N93.9 Abnormal uterine and vaginal bleeding, unspecified; L21.9 Seborrheic dermatitis, unspecified; L30.9 Dermatitis, unspecified; Q90.9 Down syndrome, unspecified; Z79.890 Hormone replacement therapy; Z79.899 Other long term (current) drug therapy; Z68.32 Body mass index [BMI] 32.0-32.9, adult
CPT/HCPCS: 36415; 80053; 82306; 82607; 82746; 84439; 84443; 85025; 99395